=== PATIENT | male | born 1985 | race Caucasian/White ===

== ENCOUNTER 2018-10-24 22:11 | Emergency (ER) | payer OTHER ==
[~2018-10-24 22:11] MED LIST: 0.9 % SODIUM CHLORIDE 1,000 ML IV STA
[2018-10-24] MEDS ORDERED: NALOXONE HCL 2 MG/2 ML ONE (22:16)
[2018-10-24] MEDS ORDERED: 0.9 % SODIUM CHLORIDE 1,000 ML IV ONE ×2 (22:16→22:23)
[2018-10-24] MEDS ORDERED: 0.9 % SODIUM CHLORIDE 1,000 ML IV STA ×2 (22:24→23:00)
--- NOTE | 2018-10-24 22:36 | ED Physician Documentation ---
Overdose - HISTORIAN Historian: paramedics - HPI Stated Complaint: post code. Chief Complaint: General Adult Additional Information: pt presents to ED via EMS c/o Post Code. pt took what he thought was 1 line of heroin at the nursing home and went in to respiratory arrest with a pulse of 20. CPR for 10 min and Intranasal narcan x 2 at nursing home. pt here had decreased LOC but would respond to voice. pupils 3 mm reactive. Narcan given and pt subsequently c/o chest pain likely from the CPR is awake, alert, oriented. pt denies medical history or surgeries. smoker. TCA positive on UDS. another inmate sent an anon note to nursing home staff stating the heroin is laced with carfentanil. 5 inmates have taken the drug and at least one coded. subsequent EKG demonstrates Sinus tachycardia Rate [address] with no ectopy or st elevation/depression. - ROS CONST: other (hpi limited due to pt condition. ) Comment: HPI limited due to pt condition - PAST HX Psychiatric problems: other (denies ) DVT/PE Risk Factors: other Lung, Cardiac, DM: other (denies) Allergies/Adverse Reactions: Allergies Allergy/AdvReac Type Severity Reaction Status Date / Time No Known Allergies Allergy Verified 10/25/18 01:20 Home Medications: Ambulatory Orders Medication Instructions Recorded NK 10/25/18 - Social HX Smoking History: less than 1 pack/day - Family HX Family HX: other - VITAL SIGNS Vital Signs: Vital Signs Temp Pulse Resp BP Pulse Ox 97.4 F L 105 H 17 145/85 99 10/24/18 22:11 10/25/18 00:59 10/25/18 00:59 10/25/18 00:59 10/25/18 00:59 - REVIEWED ASSESSMENTS Nursing Assessment Reviewed: Yes Vitals Reviewed: Yes Progress - Progress Progress: Primary Respiratory Acidosis, Acute, with: Secondary Metabolic Alkalosis INPUTS: pH > 7.39 P?CO? > 43 mm Hg HCO?- > 25.4 mEq/L Sodium > 138 mEq/L Chloride > 100 mEq/L Albumin > 4.6 g/dL PO2 65 SO2 94.2 - EKG/XRAY/CT Comments: Sinus Tacycardia. no ectopy. normal intervals/axis/qrs rate 102 Critical Care Note - Critical Care Note Total Time (mins): 56 (entire stay) ED Results Lab/Radiology - Lab Results Lab Results: Lab Results 10/24/18 10/24/18 10/24/18 23:05 23:05 22:13 WBC RBC Hgb Hct MCV MCH MCHC RDW Plt Count Neut % (Auto) Lymph % (Auto) [place] % (Auto) Eos % (Auto) Baso % (Auto) Neut # (Auto) Lymph # (Auto) [place] # (Auto) Eos # (Auto) Baso # (Auto) Sodium Potassium Chloride Carbon Dioxide BUN Creatinine Est GFR ( Amer) Est GFR (Non-Af Amer) Glucose Calcium Total Bilirubin AST ALT Alkaline Phosphatase Troponin I < 0.03 ng/mL L ng/mL (0.03-0.06) Total Protein Albumin Urine Color Yellow (YELLOW) Urine Appearance Clear (CLEAR) Urine pH 6.0 (5.0 - 8.0) Ur Specific [place] 1.025 (1.010-1.030) Urine Protein Negative mg/dL mg/dL (NEGATIVE) Urine Ketones Negative mg/dL mg/dL (NEGATIVE) Urine Occult Blood Negative (NEGATIVE) Urine Nitrite Negative (NEGATIVE) Urine Bilirubin Negative (NEGATIVE) Urine Urobilinogen 0.2 Eu Eu (0.2-1.0) Ur Leukocyte Esterase Negative (NEGATIVE) Urine Glucose Negative mg/dL mg/dL (NEGATIVE) Opiates Screen Negative ng/mL ng/mL (<300) Oxycodone Screen Negative ng/mL ng/mL (<100) Methadone Screen Negative ng/mL ng/mL (<200) Ur Barbiturates Screen Negative ng.mL ng.mL (<200) Tricyclic Antidepress Negative ng/mL ng/mL (<300) Phencyclidine Screen Negative ng/mL ng/mL (< 25) Amphetamines Screen Negative ng/mL ng/mL (<500) U Methamphetamines Scrn Negative ng/mL ng/mL (<500) MDMA Negative ng/mL ng/mL (<500) Benzodiazepines Screen Negative ng/mL ng/mL (<150) Urine Cocaine Screen Negative ng/mL ng/mL (<150) U Cannabinoids Screen Negative ng/mL ng/mL (< 50) 10/24/18 10/24/18 22:13 22:13 WBC 7.30 K/ul K/ul (4.00-12.00) RBC 5.13 M/ul M/ul (3.90-5.20) Hgb 15.4 g/dL g/dL (12.0-18.0) Hct 46.4 % % (37.0-53.0) MCV 91.0 fl fl (80.0-100.0) MCH 30.1 pg pg (28.0-34.0) MCHC 33.3 g/dL g/dL (30.0-36.0) RDW 12.9 % % (11.3-14.3) Plt Count 237 K/mm3 K/mm3 (130-400) Neut % (Auto) 53.5 % % (39.0-79.0) Lymph % (Auto) 37.5 % % (16.0-50.0) [place] % (Auto) 6.1 % % (0.0-11.0) Eos % (Auto) 2.3 % % (0.0-6.8) Baso % (Auto) 0.6 (0.0-1.5) Neut # (Auto) 3.9 # k/uL # k/uL (1.4-7.7) Lymph # (Auto) 2.7 # k/uL # k/uL (0.6-4.0) [place] # (Auto) 0.5 # k/uL # k/uL (0.0-0.9) Eos # (Auto) 0.2 # k/uL # k/uL (0.0-0.6) Baso # (Auto) 0.0 # k/uL # k/uL (0.0-0.5) Sodium 138 mmol/L mmol/L (136-145) Potassium 3.1 mmol/L L mmol/L (3.5-5.1) Chloride 100 mmol/L mmol/L (98-107) Carbon Dioxide 30 mmol/L mmol/L (22-30) BUN 10 mg/dL mg/dL (9-20) Creatinine 1.10 mg/dL mg/dL (0.66-1.25) Est GFR ( Amer) > 60 (60 - ) Est GFR (Non-Af Amer) > 60 (60 - ) Glucose 134 mg/dL H mg/dL (74-106) Calcium 8.8 mg/dL mg/dL (8.4-10.2) Total Bilirubin 0.3 mg/dL mg/dL (0.2-1.3) AST 54 U/L H U/L (15-46) ALT 73 U/L H U/L (13-69) Alkaline Phosphatase 78 U/L U/L (38-126) Troponin I Total Protein 7.4 g/dL g/dL (6.3-8.2) Albumin 4.6 g/dL g/dL (3.5-5.0) Urine Color Urine Appearance Urine pH Ur Specific [place] Urine Protein Urine Ketones Urine Occult Blood Urine Nitrite Urine Bilirubin Urine Urobilinogen Ur Leukocyte Esterase Urine Glucose Opiates Screen Oxycodone Screen Methadone Screen Ur Barbiturates Screen Tricyclic Antidepress Phencyclidine Screen Amphetamines Screen U Methamphetamines Scrn MDMA Benzodiazepines Screen Urine Cocaine Screen U Cannabinoids Screen - Radiology Radiology Impressions: Report Submission Date: Oct 24, 2018 10:44:06 PM CLERK TELEVISION PRODUCTION Patient Study Name: JOHN PAUL LOPEZ Date: Oct 24, 2018 10:21:24 PM CLERK TELEVISION PRODUCTION Modality Type: DX Gender: M Description: CHEST : 89 Institution: [facility] Physician: CONSTANTINO CARLOS Portable chest Clinical history: Cardiorespiratory arrest. Findings: Examination of the chest in single portable AP view demonstrates the lungs to be clear. Cardiovascular and mediastinal silhouettes are within normal limits. Monitor leads superimpose the chest. Impression: 1. Negative chest. Electronically signed on Oct 24, 2018 10:44:06 PM CLERK TELEVISION PRODUCTION by: Morris Mendez - Orders Orders: ED Orders Category Date Time Status Continuous EKG monitoring Q30M Care 10/24/18 22:24 Active Continuous Pulse Oximetry Q30M Care 10/24/18 22:[address] IV Lock 1T Care 10/24/18 22:[address] IV Lock 1T Care 10/25/18 01:38 Ordered CHEST 1VIEW [RAD] Stat Exams 10/24/18 Taken CBC/PLATELET/DIFF Routine Lab 10/24/18 22:13 Completed CMP Routine Lab 10/24/18 22:13 Completed MAGNESIUM Stat Lab 10/24/18 22:13 Received TROPONIN I (cTnI) Stat Lab 10/24/18 22:13 Completed UA MACRO DIP ONLY Routine Lab 10/24/18 23:05 Completed UDS [DRUG SCREEN URINE MEDICAL ONLY] Routine Lab 10/24/18 23:05 Completed 0.9 % Sodium Chloride [Normal Saline] 1,000 ml Med 10/24/18 22:16 Discontinued IV .STK-MED 0.9 % Sodium Chloride [Normal Saline] 1,000 ml Med 10/24/18 22:23 Discontinued IV .STK-MED 0.9 % Sodium Chloride [Normal Saline] 1,000 ml Med 10/24/18 23:00 Discontinued IV Q1H NORMAL SALINE @ 1000 MLS/HR ( 1000ml BOLUS) Med 10/24/18 01:39 Ordered 0.9 % Sodium Chloride [Normal Saline] 1,000 ml IV Q1H NORMAL SALINE @ 1000 MLS/HR ( 1000ml BOLUS) Med 10/24/18 22:24 Ordered 0.9 % Sodium Chloride [Normal Saline] 1,000 ml IV Q1H Naloxone HCl [Narcan] Med 10/24/18 22:16 Discontinued 1 mg .ROUTE .STK-MED ONE Naloxone HCl [Narcan] Med 10/24/18 23:23 Discontinued 1 mg IVP NOW STA Potassium Chloride [Klor-Con M20] Med 10/24/18 22:51 Discontinued 40 meq PO NOW STA Sodium Bicarbonate Med 10/24/18 22:39 Discontinued 50 meq .ROUTE .STK-MED ONE Sodium Bicarbonate Med 10/24/18 22:58 Discontinued 50 meq IVP STAT ONE Oxygen Daily Oxygen 10/24/18 22:30 Ordered EKG WITH COMPARISON Stat Ther 10/24/18 22:24 Ordered Overdose Physical Exam - Physical Exam General Appearance: moderate distress ENT: nml ENT inspection, pharynx nml, nml gag reflex, head atraumatic Eyes: PERRL, EOM's intact Mental Status: slow responsiveness (awakens to voice) Suicide Attempts: denies Orientation: other (cooperative ) Neck: normal inspection, thyroid normal Respiratory: no resp distress, chest non-tender, breath sounds normal. No: wheezes, rales, rhonchi Discharge Clincal Impression: Respiratory arrest, Hypokalemia Overdose Qualifiers: Encounter type: initial encounter Injury intent: accidental or unintentional Qualified Code(s): T50.901A - Poisoning by unspecified drugs, medicaments and biological substances, accidental (unintentional), initial encounter Referrals: Mathew Rodriguez III, MD [Primary Care Provider] - 2 Days Condition: Stable Disposition: XFER [facility] Decision to Admit: NO Date of Decison to Admit: 10/24/18 Decision Time: 23:31
[2018-10-24] MEDS ORDERED: SODIUM BICARBONATE 50 MEQ/50 ML SYRINGE ONE (22:39)
[2018-10-24 22:41] LABS: BASOPHILS % 0.6 (0.0-1.5); EOSINOPHILS % 2.3 % (0.0-6.8); MEAN CORPUSCULAR HEMOGLOBIN 30.1 pg (28.0-34.0); MONOCYTES % 6.1 % (0.0-11.0); NEUTROPHILS # 3.9 # k/uL (1.4-7.7)
[2018-10-24 22:45] LABS: eGFR (Non-African) > 60
[2018-10-24] MEDS ORDERED: POTASSIUM CHLORIDE 20 MEQ TABLET.ER PO STA (22:51)
[2018-10-24] MEDS ORDERED: SODIUM BICARBONATE 5 MEQ/10 ML PED. IVP ONE (22:58)
[2018-10-24 23:14] LABS: APPEARANCE,URINE CLEAR (CLEAR); COLOR,URINE YELLOW (YELLOW); OCCULT BLOOD,URINE NEGATIVE (NEGATIVE); UROBILINOGEN URINE 0.2 Eu (0.2-1.0)
[2018-10-24 23:15] LABS: CANNABINOIDS NEGATIVE ng/mL (< 50); METHYLENEDIOXYMETHAMPHETAMINE NEGATIVE ng/mL (<500)
[2018-10-24] MEDS ORDERED: NALOXONE HCL 2 MG/2 ML IVP STA (23:23)
[2018-10-25 01:03] VITALS: BP 145/85
--- NOTE | 2018-10-25 05:40 | Diagnostic Imaging Report ---
CONSTANTINO CARLOS [facility] [address] [facility] [address] [address] Report Submission Date: Oct 24, 2018 10:44:06 PM SPA DIRECTOR/FINANCE Patient Study Name: JOHN PAUL LOPEZ Date: Oct 24, 2018 10:21:24 PM SPA DIRECTOR/FINANCE Modality Type: DX Gender: M Description: CHEST : 89 Institution: [facility] Physician: CONSTANTINO CALROS Portable chest Clinical history: Cardiorespiratory arrest. Findings: Examination of the chest in single portable AP view demonstrates the lungs to be clear. Cardiovascular and mediastinal silhouettes are within normal limits. Monitor leads superimpose the chest. Impression: 1. Negative chest. Electronically signed on Oct 24, 2018 10:44:06 PM SPA DIRECTOR/FINANCE by: Morris MELVIN
[2018-10-25 07:33] LABS: ABG BASE EXCESS 0.8 (-2 - +2); ABG PH 7.39 (7.35-7.45)
== END 2018-10-25 00:22 | disposition short-term general hospital (02) ==
LOC: ED 22:11
DX: T50.901A Poisoning by unspecified drugs, medicaments and biological substances, accidental (unintentional), initial encounter (principal); Y92.149 Unspecified place in prison as the place of occurrence of the external cause; R09.2 Respiratory arrest; E87.6 Hypokalemia
CPT/HCPCS: 36600; 71045; 80053; 80377; 81002; 82803; 83735; 84484; 85025; 93005; 96374; 96375; 99291; A9270; J2310; J7030; G0481; S1016